=== PATIENT | female | born 1945 | race Two or more races ===

== ENCOUNTER 2019-02-27 17:22 | Emergency (ER) | payer BC, MEDICAID, MEDICARE ==
[~2019-02-27] VITALS: Ht 152.4 cm; Wt 74.8 kg
[~2019-02-27 17:22] MED LIST: AMLODIPINE BESYL5 MG ORAL; BENAZEPRIL HCL20 MG ORAL; OMEPRAZOLE20 M2 ORAL
[2019-02-27 17:30] VITALS: BP 196/95
--- NOTE | 2019-02-27 17:30 | NUR ---
ED Nurse Note: Patient arrived to ED c/o high BP. She states that her PCP advised her to come to the ED. Patient asymptomatic, no s/s of headache, vision changes, dizziness, or shortness of breath. Patient AxO x 4, no s/s of acute distress noted. Patient on the clinical research monitor, bed in lowest position.
[2019-02-27 18:05] VITALS: BP 175/87
--- NOTE | 2019-02-27 18:05 | NUR ---
ED Nurse Note: Patient cleared for DC by Dr. Robertson. Patient Asymptomatic, no s/s of headach, vision changes, dizziness, or shortness of breath. Patient has steady gait, took all belongings. ID band removed.
--- NOTE | 2019-02-27 21:35 | Emergency Room Report ---
History of Present Illness General Chief Complaint: Hypertension Source: Patient Present Illness HPI 73-year-old female presents ED for evaluation. Patient states that her blood pressure was high. Was seen by PMD today and states that her systolic was greater than 200 and was told to come to the ED for evaluation. History of hypertension. Takes benazepril. States she is compliant with her medication. Denies chest pain or shortness of breath. Denies dizziness or headache. No other aggravating relieving factors. Denies any other associated symptoms Allergies: Coded Allergies: No Known Allergies (Unverified , 10/08/15) Patient History Past Medical History: HTN, GERD Past Surgical History: none Pertinent Family History: none Social History: Denies: smoking, alcohol use, drug use Now: No Immunizations: UTD Reviewed Nursing Documentation: PMH: Agreed; PSxH: Agreed Nursing Documentation-PMH Past Medical History: No History, Except For Hx Hypertension: Yes Hx Cancer: Yes Hx Gastrointestinal Problems: Yes - gastritis Hx Neurological Problems: No Review of Systems All Other Systems: negative except mentioned in HPI Physical Exam Vital Signs Date Time Temp Pulse Resp B/P (MAP) Pulse Ox O2 Delivery O2 Flow Rate FiO2 02/27/19 17:26 98.1 91 16 196/95 (128) 96 Room Air Sp02 EP Interpretation: reviewed, normal General Appearance: no apparent distress, alert, GCS 15, non-toxic Head: normocephalic, atraumatic Eyes: bilateral eye normal inspection, bilateral eye PERRL ENT: hearing grossly normal, normal pharynx, no angioedema, normal voice Neck: full range of motion, supple/symm/no masses Respiratory: chest non-tender, lungs clear, normal breath sounds, speaking full sentences Cardiovascular #1: regular rate, rhythm, no edema Cardiovascular #2: 2+ carotid (R), 2+ carotid (L), 2+ radial (R), 2+ radial (L) , 2+ dorsalis pedis (R), 2+ dorsalis pedis (L) Gastrointestinal: normal bowel sounds, non tender, soft, non-distended, no guarding, no rebound Rectal: deferred Genitourinary: normal inspection, no CVA tenderness Musculoskeletal: back normal, normal range of motion, gait/station normal, non- tender Neurologic: alert, motor strength/tone normal, oriented x3, sensory intact, responsive, speech normal Psychiatric: judgement/insight normal, memory normal, mood/affect normal, no suicidal/homicidal ideation Reflexes: 3+ bicep (R), 3+ bicep (L), 3+ tricep (R), 3+ tricep (L), 3+ knee (R) , 3+ knee (L) Lymphatic: no adenopathy Medical Decision Making Diagnostic Impression: Primary Impression: Hypertension Qualified Codes: I10 - Essential (primary) hypertension ER Course Hospital Course 73 yo F presents with high BP. asymptomatic Differential diagnoses include: hypertensive urgency, hypertensive emergency, arrythmia, ME/ACS Clinical course Patient placed on stretcher. After initial history, exam reveals elderly female in no acute distress. No focal neurological deficits. No nuchal rigidity. Physical exam unremarkable. Repeat BP is lower. I see no reason for acute intervention at this time. Discussed findings with patient. Safe for discharge for close outpatient follow -up. Encourage compliance with her medication. Patient is to discuss with PMD possibility of augmenting her medication regimen. Safe for discharge for close outpatient follow-up I. I feel this is a highly complex case requiring extensive working including EKG/Rhythm strip, Xray/CT/US, Blood/urine lab work, repeat exams while in ED, and administration of strong opiates/narcotics for pain control, admission to hospital or close patient follow up. Diagnosis - hypertension Stable and discharged to home. Instructed to followup with PMD. Return to ED if symptoms recur or worsen Last Vital Signs Date Time Temp Pulse Resp B/P (MAP) Pulse Ox O2 Delivery O2 Flow Rate FiO2 02/27/19 18:05 98.0 17 175/87 99 Room Air 02/27/19 17:30 91 Status: improved Disposition: HOME, SELF-CARE Condition: Stable Referrals: NOT CHOSEN JULIA/,REFERRING (PCP) Ramirez Simms [facility]. [facility] Patient Instructions: Hypertension, [id number] Gaston Robertson MD Feb 27, 2019 21:35
== END 2019-02-27 18:05 | disposition home or self-care (01) ==
LOC: EMR 17:50
DX: I10 Essential (primary) hypertension (principal); K21.9 Gastro-esophageal reflux disease without esophagitis; Z85.9 Personal history of malignant neoplasm, unspecified
CPT/HCPCS: 99282